=== PATIENT | female | born 1980 | race African-American/Black ===

== ENCOUNTER 2017-11-20 12:15 | Emergency (ER) | payer OTHER ==
[~2017-11-20] VITALS: Ht 162.6 cm; Wt 97.5 kg
[~2017-11-20 12:15] MED LIST: ACETAMINOPHEN325 M1 PO; CIPROFLOXACIN500 M1 PO; DIFLUCAN150 M1 PO; LEVOTHYROXIN0.175 MG PO; LOMOTIL TABLET1 EACH PO; METFORMIN HCL500 MG PO; NORCO 5-325 TA1 EACH PO; OMEPRAZOLE40 MG PO; PEPCID20 MG PO; PERCOCET; SYNTHROID175 MCG PO; ULTRAM 50MG TAB50 MG PO
[2017-11-20 14:15] VITALS: BP 113/67
[2017-11-20] MEDS ORDERED: SENNA-DOCUSATE1 EACH PO (14:25)
[2017-11-20] MEDS ORDERED: NORFLEX100 MG PO (14:25)
[2017-11-20] MEDS ORDERED: NORCO 5-325 TA1 EACH PO (14:25)
[2017-11-20] MEDS ORDERED: NAPROSYN500 MG PO (14:25)
== END 2017-11-20 15:21 | disposition home or self-care (01) ==
LOC: ER 12:15
DX: S39.012A Strain of muscle, fascia and tendon of lower back, initial encounter (principal); S16.1XXA Strain of muscle, fascia and tendon at neck level, initial encounter; S29.012A Strain of muscle and tendon of back wall of thorax, initial encounter; K21.9 Gastro-esophageal reflux disease without esophagitis; E05.00 Thyrotoxicosis with diffuse goiter without thyrotoxic crisis or storm; Z88.6 Allergy status to analgesic agent; V49.40XA Driver injured in collision with unspecified motor vehicles in traffic accident, initial encounter; Y93.I9 Activity, other involving external motion; Y92.89 Other specified places as the place of occurrence of the external cause; Y99.8 Other external cause status